=== PATIENT | female | born 1970 | race Two or more races ===

== ENCOUNTER 2021-05-09 17:21 | Emergency (ER) | payer OTHER ==
[~2021-05-09] VITALS: Ht 162.6 cm; Wt 59.0 kg
[~2021-05-09 17:21] MED LIST: SYNTHROID50 MCG PO
[2021-05-09] MEDS ORDERED: SYMBICORT 16010.2 GM IH (17:45)
[2021-05-09] MEDS ORDERED: PROAIR HFA8.5 GM IH ×2 (17:45→17:46)
[2021-05-09] MEDS ORDERED: ATORVASTATIN CA20 MG PO (17:45)
[2021-05-09] MEDS ORDERED: SYNTHROID150 MCG PO (17:46)
== END 2021-05-09 23:44 | disposition home or self-care (01) ==
LOC: ER 17:21
DX: J45.998 Other asthma (principal)

== ENCOUNTER 2024-10-12 11:04 | Emergency (ER) | payer OTHER ==
[~2024-10-12] VITALS: Ht 162.6 cm; Wt 97.5 kg
[~2024-10-12 11:04] MED LIST changes: +ATORVASTATIN CA20 MG PO; +PROAIR HFA8.5 GM IH; +SYMBICORT 16010.2 GM IH; +SYNTHROID150 MCG PO
[2024-10-12] MEDS ORDERED: ALLEGRA ALLERG180 MG (11:55)
[2024-10-12] MEDS ORDERED: RAYOS5 MG (11:55)
[2024-10-12] MEDS ORDERED: ALLERGY RELIEF10 M4 (11:56)
[2024-10-12] MEDS ORDERED: METHYLPREDNISOLONE SOD SUCC 125 MG VIAL IM STA (12:47)
[2024-10-12] MEDS ORDERED: DIPHENHYDRAMINE HCL 50 MG/ML VIAL 1ML IM STA (12:47)
== END 2024-10-12 13:23 | disposition home or self-care (01) ==
LOC: ER 11:06
DX: L29.9 Pruritus, unspecified (principal); T78.40XA Allergy, unspecified, initial encounter; X58.XXXA Exposure to other specified factors, initial encounter

== ENCOUNTER 2024-10-14 09:08 | Emergency (ER) | payer OTHER ==
[~2024-10-14] VITALS: Ht 162.6 cm; Wt 97.5 kg
[~2024-10-14 09:08] MED LIST changes: +ALLEGRA ALLERG180 MG; +ALLERGY RELIEF10 M4; +RAYOS5 MG
[2024-10-14] MEDS ORDERED: DIPHENHYDRAMINE HCL 12.5 MG/5 ML BLIST.PACK PO STA (11:08)
== END 2024-10-14 11:35 | disposition home or self-care (01) ==
LOC: ER 09:10
DX: R21 Rash and other nonspecific skin eruption (principal)

== ENCOUNTER 2025-06-20 05:50 | Day surgery (SDC) | payer OTHER ==
[2025-06-19 10:48] VITALS: BP 120/74
[~2025-06-20] VITALS: Ht 162.6 cm; Wt 99.8 kg
[~2025-06-20 05:50] MED LIST changes: +PROAIR RESPICL90 MCG IH
[2025-06-20] MEDS ORDERED: CEFAZOLIN SODIUM 1,000 MG VIAL IV ONE (14:15)
[2025-06-20] MEDS ORDERED: SUGAMMADEX SODIUM 200 MG/2 ML VIAL IV ONE (15:45)
[2025-06-20] MEDS ORDERED: MORPHINE SULFATE 4 MG/ML VIAL IV ONE ×2 (16:15→17:30)
== END 2025-06-20 18:50 | disposition home or self-care (01) ==
LOC: CIR.AMB 05:50
PROVIDERS: ATTEND Surgery
DX: D48.62 Neoplasm of uncertain behavior of left breast (principal); N60.92 Unspecified benign mammary dysplasia of left breast; N60.82 Other benign mammary dysplasias of left breast

== ENCOUNTER 2025-07-10 16:54 | Inpatient (IN) | payer OTHER ==
[~2025-07-10] VITALS: Ht 160 cm; Wt 98.4 kg
[2025-07-10] MEDS ORDERED: IPRATROPIUM BROMIDE 0.5 MG/2.5 ML AMPUL.NEB IH ONE (17:43)
[2025-07-10] MEDS ORDERED: LEVALBUTEROL HCL 0.63 MG/3 ML SOLUTION IH ONE (17:44)
[2025-07-10] MEDS ORDERED: METHYLPREDNISOLONE SOD SUCC 125 MG VIAL IV ONE (17:45)
[2025-07-10] MEDS ORDERED: FAMOtidine 10 MG/ML (4ML VIAL) IV ONE (17:45)
[2025-07-10] MEDS ORDERED: CEFTRIAXONE SODIUM 1,000 MG VIAL IV ONE (17:45)
[2025-07-10] MEDS ORDERED: MAGNESIUM SULFATE IN WATER 2 GM/50 ML PIGGYBAG IV ONE (17:45)
[2025-07-10] MEDS ORDERED: LEVALBUTEROL HCL 1.25 MG/3 ML SOLUTION IH SCH ×2 (17:45→22:34)
[2025-07-10] MEDS ORDERED: IPRATROPIUM BROMIDE 0.5 MG/2.5 ML AMPUL.NEB IH SCH ×2 (17:45→22:34)
[2025-07-10] MEDS ORDERED: BENZONATATE 200 MG CAPSULE PO ONE (18:00)
[2025-07-10] MEDS ORDERED: CEFTRIAXONE SODIUM 1,000 MG VIAL ONE (18:08)
[2025-07-10] MEDS ORDERED: METHYLPREDNISOLONE SOD SUCC 125 MG VIAL ONE (18:08)
[2025-07-10] MEDS ORDERED: FAMOTIDINE/PF 20 MG/2 ML VIAL ONE (18:09)
[2025-07-10 18:12] LABS: BASO % 0.3 % (0.1-1.2); EOS # 0.78 (0.04-0.54); EOS % 6.7 % (0.7-7.0); LYMPH # 2.62 (1.18-3.74); LYMPH % 22.7 % (19.3-53.1); MEAN PLATELET VOLUME 10.60 fl (9.4-12.4); MONO # 0.53 (0.24-0.82); MONO % 4.6 % (4.7-12.5); NEUT # 7.51 (1.56-6.13); NEUT % 65.0 % (34.0-71.1); RED CELL DISTRIBUTION WIDTH 14.2 % (11.6-14.4)
[2025-07-10 18:29] LABS: ABG PH 7.402 (7.35-7.45); ABG PO2 82.4 mmHg (80-100)
[2025-07-10 18:30] LABS: BICARBONATE 25.9 mmol/l (23-25); o2 21 %
[2025-07-10 18:39] LABS: COVID-19 AG NEGATIVE (NEGATIVE)
[2025-07-10 18:40] LABS: INR 0.94
[2025-07-10 18:44] LABS: URINE APPEARANCE Clear; URINE BILIRRUBIN Negative (NEGATIVE); URINE BLOOD Negative; URINE COLOR Yellow; URINE GLUCOSE Negative (NEGATIVE); URINE KETONE Negative (NEGATIVE); URINE LEUKOCYTE Negative; URINE NITRATE Negative; URINE PROTEIN Negative (NEGATIVE); URINE UROBILINOGEN 1.0 E.U./dl
[2025-07-10 18:45] LABS: URINE BACTERIA 40.8 uL (0.0-1933); URINE EPITHELIAL CELLS 17.0 uL (0.0-38.8); URINE WBC 19.2 uL (0.0-23.2)
[2025-07-10 18:47] LABS: URINE CAST 0.14 uL (0.0-1.40); URINE RBC 1.0 uL (0.0-20.8)
[2025-07-10 18:54] LABS: ALT/SGPT 28.0 U/L (12-78); AST/SGOT 20.0 U/L (15-37); BILIRUBIN TOTAL 0.27 mg/dL (0.3-1.2); BUN CREA RATIO 29.0 (7.0-25.0); CREATININE SERUM 0.66 mg/dL (0.55-1.02); GFR 92.64; GLOBULINA 4.0 G/DL (2.4-3.5); GLUCOSE FASTING 105.0 mg/dL (65-100); OSMOLALITY SERUM 282.0 MOSM/KG (275-295)
[2025-07-10] MEDS ORDERED: 0.9 % SODIUM CHLORIDE 1,000 ML IV SCH (22:30)
[2025-07-10] MEDS ORDERED: ACETAMINOPHEN 500 MG GEL..CAP PO ONE (22:31)
[2025-07-10] MEDS ORDERED: METHYLPREDNISOLONE SOD SUCC 40 MG VIAL IV SCH (22:36)
[2025-07-10] MEDS ORDERED: AZITHROMYCIN 500 MG in DEXTROSE 5 % IN WATER 250 ML IV SCH (22:36)
[2025-07-10] MEDS ORDERED: ONDANSETRON HCL 4 MG in 0.9 % SODIUM CHLORIDE 50 ML IV PRN (22:45)
[2025-07-10] MEDS ORDERED: ACETAMINOPHEN 500 MG GEL..CAP PO PRN (22:45)
[2025-07-11 05:50] VITALS: BP 114/68; O2SAT 96
[2025-07-11] MEDS ORDERED: LEVOTHYROXINE SODIUM 75 MCG TABLET PO SCH (06:00)
[2025-07-11 08:38] VITALS: BP 147/93; O2SAT 98
[2025-07-11] MEDS ORDERED: FAMOTIDINE/PF 20 MG in 0.9 % SODIUM CHLORIDE 8 ML IV PUSH SCH (09:00)
[2025-07-11] MEDS ORDERED: ENOXAPARIN SODIUM 40 MG/0.4 ML SYRINGE SUBCUTANEO SCH (09:00)
[2025-07-11] MEDS ORDERED: ROSUVASTATIN CALCIUM 10 MG TABLET PO SCH (09:00)
[2025-07-11 13:26] VITALS: O2SAT 94
[2025-07-11 16:15] VITALS: O2SAT 95
[2025-07-11 16:38] VITALS: BP 107/52
[2025-07-11] MEDS ORDERED: MONTELUKAST SODIUM 10 MG TABLET PO SCH (17:00)
[2025-07-11] MEDS ORDERED: LACTOBACILLUS ACIDOPHILUS 1 CAP CAP PO SCH (17:00)
[2025-07-11 19:51] VITALS: O2SAT 95
[2025-07-11] MEDS ORDERED: BUTALB/ACETAMINOPHEN/CAFFEINE 1 TAB TABLET PO PRN (21:00)
[2025-07-12] VITALS (9 sets, daily range): BP systolic 110–147; BP diastolic 63–93; O2SAT 94–99
[2025-07-12] MEDS ORDERED: AZITHROMYCIN 500 MG VIAL IV ONE (08:07)
[2025-07-12 08:59] LABS: HDL 59.0 mg/dl (40-60); T4 FREE 0.91 NG/ML (0.76-1.46); VLDL 15.0 (0-39)
[2025-07-12] MEDS ORDERED: AZITHROMYCIN 500 MG VIAL IV SCH (09:00)
[2025-07-12 09:05] LABS: CHOL HDL RATIO 4.4 (0-5.0); LDL 184.0 mg/dl (0-130)
[2025-07-12 09:06] LABS: TSH 0.314 uIU/mL (0.358-3.74)
[2025-07-12] MEDS ORDERED: GUAIFENESIN/DEXTROMETHORPHAN 100MG/10ML BLIST.PACK PO SCH (17:00)
[2025-07-12] MEDS ORDERED: BENZONATATE 100 MG CAPSULE PO SCH (17:00)
[2025-07-12] MEDS ORDERED: LORATADINE 10 MG TABLET PO SCH (21:00)
[2025-07-12] MEDS ORDERED: FLUTICASONE PROPIONATE 50 MCG SPRAY NASAL SCH (21:00)
[2025-07-13] VITALS (7 sets, daily range): BP systolic 118–138; BP diastolic 64–76; O2SAT 93–99
[2025-07-14 01:26] VITALS: BP 132/67; O2SAT 98
[2025-07-14 08:57] VITALS: BP 118/66; O2SAT 99
[2025-07-14 09:25] VITALS: O2SAT 97
[2025-07-14 12:51] VITALS: O2SAT 90
[2025-07-14 17:24] VITALS: BP 130/73; O2SAT 97
[2025-07-14] MEDS ORDERED: METHYLPREDNISOLONE SOD SUCC 40 MG VIAL IV SCH (21:00)
[2025-07-15 01:05] VITALS: O2SAT 97
[2025-07-15 01:15] VITALS: BP 113/69; O2SAT 97
[2025-07-15 09:25] VITALS: BP 130/72; BP 142/77; O2SAT 100; O2SAT 98
[2025-07-15] MEDS ORDERED: MENTHOL/CETYLPYRD CL 1 LOZENGE MM PRN (11:15)
[2025-07-15 12:16] VITALS: O2SAT 93
[2025-07-15 17:56] VITALS: BP 134/84; O2SAT 97
[2025-07-16 01:36] VITALS: BP 123/81; O2SAT 95
[2025-07-16] MEDS ORDERED: AZITHROMYCIN 500 MG VIAL IV ONE (07:57)
[2025-07-16] MEDS ORDERED: DIPHENHYDRAMINE HCL 50 MG/ML VIAL 1ML IV STA (09:21)
[2025-07-16 10:04] VITALS: BP 120/75; BP 137/76; O2SAT 96
[2025-07-16] MEDS ORDERED: EMOLLIENTS 6 OZ BOTTLE TOP SCH (17:00)
[2025-07-16 18:18] VITALS: BP 131/80
[2025-07-16 21:34] VITALS: O2SAT 99
[2025-07-17 03:36] VITALS: BP 103/66; O2SAT 94
[2025-07-17] MEDS ORDERED: AZITHROMYCIN 500 MG VIAL IV ONE (07:55)
[2025-07-17 08:28] VITALS: BP 118/77; O2SAT 97
[2025-07-17] MEDS ORDERED: METHYLPREDNISOLONE SOD SUCC 40 MG VIAL IV SCH (09:00)
[2025-07-17 15:21] LABS: ABG PH 7.425 (7.35-7.45); ABG PO2 64.6 mmHg (80-100)
[2025-07-17 15:22] LABS: BICARBONATE 29.5 mmol/l (23-25); o2 21 %
[2025-07-17] MEDS ORDERED: BENZONATATE100 MG PO (15:52)
[2025-07-17] MEDS ORDERED: Cepacol Sore Throat MM (15:52)
[2025-07-17] MEDS ORDERED: XOPENEX CO1.25 MG/0. IH (15:52)
[2025-07-17] MEDS ORDERED: MONTELUKAST SOD10 MG PO (15:52)
[2025-07-17] MEDS ORDERED: IPRATROPIU0.2 MG/1 M IH (15:52)
[2025-07-17] MEDS ORDERED: LORATADINE10 MG PO (15:52)
[2025-07-17] MEDS ORDERED: MEDROLPACK PO (15:52)
[2025-07-17] MEDS ORDERED: QC TUSSIN DM 2237 ML PO (15:52)
[2025-07-17 16:39] VITALS: BP 118/77; O2SAT 93
== END 2025-07-17 17:12 | disposition home or self-care (01) | DRG 203 ==
LOC: ER 17:03 → MEDI 22:39
PROVIDERS: General Practice; ADMIT Internal Medicine; ATTEND Internal Medicine
PROC: 3E0F7GC Introduction of Other Therapeutic Substance into Respiratory Tract, Via Natural or Artificial Opening (ICD-10-PCS; principal; 2025-07-11)
PROC: B246ZZZ Ultrasonography of Right and Left Heart (ICD-10-PCS; 2025-07-11)
PROC: 4A12X4Z Monitoring of Cardiac Electrical Activity, External Approach (ICD-10-PCS; 2025-07-11)
DX: J45.41 Moderate persistent asthma with (acute) exacerbation (principal); J45.42 Moderate persistent asthma with status asthmaticus; J02.9 Acute pharyngitis, unspecified; E03.9 Hypothyroidism, unspecified; E78.5 Hyperlipidemia, unspecified; G47.33 Obstructive sleep apnea (adult) (pediatric); R05.3 Chronic cough

== ENCOUNTER 2025-08-26 23:21 | Emergency (ER) | payer OTHER ==
[~2025-08-26] VITALS: Ht 162.6 cm; Wt 99.8 kg
[~2025-08-26 23:21] MED LIST changes: +BENZONATATE100 MG PO; +Cepacol Sore Throat MM; +IPRATROPIU0.2 MG/1 M IH; +LORATADINE10 MG PO; +MEDROLPACK PO; +MONTELUKAST SOD10 MG PO; +QC TUSSIN DM 2237 ML PO; +XOPENEX CO1.25 MG/0. IH
[2025-08-26 23:48] VITALS: BP 111/79; O2SAT 98
[2025-08-27] MEDS ORDERED: DIPHENHYDRAMINE HCL 50 MG/ML VIAL 1ML IV STA (00:40)
[2025-08-27] MEDS ORDERED: FAMOTIDINE/PF 20 MG/2 ML VIAL IV PUSH STA (00:40)
[2025-08-27] MEDS ORDERED: EPINEPHRINE HCL/PF 1 MG/ML AMPUL SUBCUTANEO STA (00:40)
[2025-08-27] MEDS ORDERED: METHYLPREDNISOLONE SOD SUCC 125 MG VIAL IV STA (00:40)
[2025-08-27] MEDS ORDERED: METHYLPREDNISOLONE SOD SUCC 125 MG VIAL ONE (01:21)
[2025-08-27] MEDS ORDERED: DIPHENHYDRAMINE HCL 50 MG/ML VIAL 1ML ONE (01:21)
[2025-08-27] MEDS ORDERED: EPINEPHRINE HCL/PF 1 MG/ML AMPUL ONE (01:21)
[2025-08-27] MEDS ORDERED: FAMOTIDINE/PF 20 MG/2 ML VIAL ONE (01:22)
[2025-08-27] MEDS ORDERED: BENADRYL25 MG PO (04:02)
[2025-08-27] MEDS ORDERED: MEDROL8 MG PO (04:02)
[2025-08-27] MEDS ORDERED: PEPCID40 MG PO (04:02)
== END 2025-08-27 04:11 ==
LOC: ER 23:21
DX: L50.9 Urticaria, unspecified (principal); Z87.09 Personal history of other diseases of the respiratory system

== ENCOUNTER 2025-09-14 17:06 | Emergency (ER) | payer OTHER ==
[~2025-09-14] VITALS: Ht 162.6 cm; Wt 104.3 kg
[~2025-09-14 17:06] MED LIST changes: +BENADRYL25 MG PO; +MEDROL8 MG PO; +PEPCID40 MG PO
[2025-09-14] MEDS ORDERED: DEXAMETHASONE SODIUM PHOSP/PF 10 MG/ML VIAL IV ONE (18:00)
[2025-09-14] MEDS ORDERED: FAMOtidine 10 MG/ML (4ML VIAL) IV ONE (18:00)
[2025-09-14] MEDS ORDERED: DIPHENHYDRAMINE HCL 50 MG/ML VIAL 1ML IV ONE (18:00)
[2025-09-14] MEDS ORDERED: DEXAMETHASONE SODIUM PHOSPHATE 4 MG/ML VIAL ONE (18:28)
[2025-09-14] MEDS ORDERED: FAMOTIDINE/PF 20 MG/2 ML VIAL ONE (18:28)
[2025-09-14] MEDS ORDERED: DIPHENHYDRAMINE HCL 50 MG/ML VIAL 1ML ONE (18:28)
[2025-09-14] MEDS ORDERED: ATARAX25 MG PO (20:44)
[2025-09-14] MEDS ORDERED: PEPCID AC20 MG PO (20:44)
[2025-09-14] MEDS ORDERED: ZYRTEC10 M3 PO (20:44)
[2025-09-14] MEDS ORDERED: MEDROLPACK PO (21:23)
[2025-09-14] MEDS ORDERED: HYDROCORTISO453.6 GM TOP (21:28)
== END 2025-09-14 21:36 | disposition home or self-care (01) ==
LOC: ER 17:07
DX: L27.2 Dermatitis due to ingested food (principal); E03.9 Hypothyroidism, unspecified; Z87.09 Personal history of other diseases of the respiratory system